=== PATIENT | female | born 1955 | race Caucasian/White ===

== ENCOUNTER 2019-12-11 16:24 | Emergency (ER) | payer BC, OTHER ==
[~2019-12-11] VITALS: Ht 163 cm; Wt 75.2 kg
[2019-12-11] MEDS ORDERED: MONT10TA26 (16:35)
[2019-12-11] MEDS ORDERED: FLUO20CA46 (16:35)
[2019-12-11] MEDS ORDERED: LISI-552 (16:35)
--- NOTE | 2019-12-11 16:39 | NUR ---
Dr. Red in room at this time.
[2019-12-11] MEDS ORDERED: ONDANSETRON 4 MG (ZOFRAN) ORAL DISSOLVE TAB PO STA (16:42)
[2019-12-11] MEDS ORDERED: HYDROcodone/APAP 10 MG/325 MG (LORTAB) TAB PO ONE (16:45)
--- NOTE | 2019-12-11 16:51 | ED Upper Extremity ---
General Chief Complaint: Trauma-Non Activation Stated Complaint: WRIST INJ Nursing Triage Note: Patient reports falling over trailer hitch onto outstretched L arm. C/O L wrist pain, denies elbow or shoulder pain. denies hitting head or LOC. Nursing Sepsis Screen: No Definite Risk Source: patient History of Present Illness Date Seen by Provider: December 11, 2019 Time Seen by Provider: 16:20 Initial Comments Patient is a right-handed female who presents with left injury/forearm injury after accidentally falling with an outstretched left hand. Patient reports hearing snapping sensation noted to have subtle deformity over the distal forearm. Patient denies hitting head, headache, loss of consciousness and neck pain. Denies chest, shoulder elbow pain. Patient is not currently on blood thinners. Reports nausea secondary to the pain, Patient arrives by private vehicle. Onset: just prior to arrival Pain/Injury Location: left forearm, left wrist Method of Injury: fell Modifying Factors: Improves With Cold Therapy, Improves With Movement Allergies and Home Medications Allergies Coded Allergies: hydrocodone (Verified Allergy, Unknown, Vomiting, 12/11/19) oxycodone (Verified Allergy, Unknown, Vomiting, 12/11/19) Patient Home Medication List Home Medication List Reviewed: Yes Review of Systems Constitutional: no symptoms reported EENTM: no symptoms reported Cardiovascular: no symptoms reported Gastrointestinal: no symptoms reported Genitourinary: no symptoms reported Psychiatric/Neurological: Numbness, Paresthesia Past Npykkei-Zspcts-Mpdtiv Hx Past Med/Social Hx: Reviewed Nursing Past Med/Soc Hx Patient Social History Alcohol Use: Regular Use Alcohol Beverage of Choice: Beer Recreational Drug Use: No Smoking Status: Never a Smoker Recent Foreign Travel: No Contact w/Someone Who Travel: No Recent Infectious Disease Expo: No Past Medical History Surgeries: Yes Hysterectomy, Oophorectomy, Orthopedic Respiratory: No Cardiac: Yes Hypertension Neurological: No Genitourinary: No Gastrointestinal: No Musculoskeletal: No Endocrine: No HEENT: No Cancer: No Psychosocial: Yes Depression Blood Disorders: No Physical Exam Vital Signs Vital Signs - First Documented 12/11/19 16:32 Temp 35.6 Pulse 89 Resp 22 B/P (MAP) 134/84 (101) Pulse Ox 100 Capillary Refill : Less Than 3 Seconds Height, Weight, BMI Height: '" Weight: lbs. oz. kg; 28.00 BMI Method: General Appearance: mild distress HEENT: PERRL/EOMI, normal ENT inspection Neck: full range of motion, supple, normal inspection Cardiovascular: normal peripheral pulses, regular rate, rhythm Respiratory: lungs clear Gastrointestinal: non tender, soft Back: normal inspection Shoulder: normal inspection, non-tender Elbow/Forearm: bone tenderness (L distal forearm), limited ROM, pain, soft tissue tenderness, swelling Wrist: Yes deformity (L proximal wrist), Yes limited ROM, Yes pain, Yes soft tissue tenderness, Yes swelling Neurologic/Tendon: normal sensation, normal motor functions, responds to pain Neurologic/Psychiatric: no motor/sensory deficits, alert, oriented x 3 Progress/Results/Core Measures Results/Orders My Orders Orders - RICK BARRERA DO Forearm 2 View Left (12/11/19 16:42) Wrist 3 View Left (12/11/19 16:42) Ondansetron Oral Dissolve Tab (Zofran (12/11/19 16:42) Hydrocodone/Apap 10/325 Tablet (Lortab 1 (12/11/19 16:45) Medications Given in ED Current Medications Medications Dose Ordered Sig/Michelle Route Start Time Stop Time Status Last Admin Dose Admin Acetaminophen/ Hydrocodone Bitart 1 ea ONCE ONCE PO 12/11/19 16:45 12/11/19 16:46 DC 12/11/19 17:00 1 EA Vital Signs/I&O 12/11/19 16:32 Temp 35.6 Pulse 89 Resp 22 B/P (MAP) 134/84 (101) Pulse Ox 100 Blood Pressure Mean: 101 Departure Communication (Admissions) XR L forearm/wrist: distal radius fx Patient placed in splint and sling Impression Primary Impression: Wrist fracture, left Disposition: HOME, SELF-CARE Condition: Stable Departure-Patient Inst. Decision time for Depature: 17:06 Patient Instructions: Wrist Fracture (DC) Add. Discharge Instructions: Please wear splint and sling. Take ibuprofen for pain and hydrocodone as needed for additional relief. Contact Dr. Burgess's office on Saturday to schedule follow-up appointment later that week All discharge instructions reviewed with patient and/or family. Voiced understanding. Scripts Hydrocodone/Acetaminophen (Hydrocodone-Acetamin 5-325 mg) 1 Each Tablet 1 EACH PO q6, #10 TAB Prov: RICK BARRERA DO 12/11/19 RICK BARRERA DO December 11, 2019 16:51
--- NOTE | 2019-12-11 17:05 | Diagnostic Imaging Report ---
EXAMINATION: Left elbow, 2 views. COMPARISON: None. HISTORY: 64-year-old female, injury. Left forearm and wrist pain. FINDINGS: There is a comminuted displaced distal radial metaphyseal fracture. There is mild dorsal angulation of the distal fracture fragment. There is no additional identified more proximal fracture of the radius or ulna. There is no identified radiopaque foreign body. IMPRESSION: 1. Comminuted displaced and mildly dorsally angulated fracture of the distal radial metaphysis. 2. No identified acute fracture involving the more proximal aspect of the radius or ulna. Dictated by: Dictated on workstation # [id number]
[2019-12-11] MEDS ORDERED: HYDR-83 PO (17:07)
--- NOTE | 2019-12-11 17:07 | Diagnostic Imaging Report ---
INDICATION: Pain. COMPARISON: Imaging performed from same date. TECHNIQUE: Three radiographs of left wrist dated December 11, 2019. FINDINGS: Acute distal radial fracture is present. Fracture is mildly comminuted. There is resulting mild dorsal tilt. No definite intra-articular extension of the fracture. No additional acute fracture or dislocation. No destructive osseous process. Scattered degenerative changes, including advanced degenerative changes at the first CMC joint and the STT joint. IMPRESSION: Acute mildly comminuted distal radial fracture with associated dorsal tilt without intra-articular extension. Scattered degenerative changes. Dictated by: Dictated on workstation # [id number]
[2019-12-11] MEDS ORDERED: ONDA4TAB11 PO (17:19)
[2019-12-11 17:22] VITALS: BP 134/84
--- OUTSIDE RECORDS SUMMARY | 2019-12-11 18:47 | XMS REPORT | Continuity of Care Document ---
Author Organization Unknown Address Unknown Phone Unavailable Allergies There is no data. Medications There is no data. Problems There is no data. Procedures There is no data. Results Test Result Range CBC - 02/05/19 08:15 WHITE BLOOD CELL COUNT 6.5 Thousand/uL 3 .8-10.8 RED BLOOD CELL COUNT 4.20 Million/uL 3.8 0-5.10 HEMOGLOBIN 13.0 g/dL 11.7-15.5 HEMATOCRIT 40.4 % 35.0-45.0 MCV 96.2 fL 80.0-100.0 MCH 31.0 pg 27.0-33.0 MCHC 32.2 g/dL 32.0-36.0 RDW 13.1 % 11.0-15.0 PLATELET COUNT 353 Thousand/uL 140-400 MPV 9.1 fL 7.5-12.5 ABSOLUTE NEUTROPHILS 3679 cells/uL 1500- 7800 ABSOLUTE LYMPHOCYTES 1983 cells/uL 850-3 900 ABSOLUTE MONOCYTES 585 cells/uL 200-950 ABSOLUTE EOSINOPHILS 182 cells/uL 15-500 ABSOLUTE BASOPHILS 72 cells/uL 0-200 NEUTROPHILS 56.6 % NRG LYMPHOCYTES 30.5 % NRG MONOCYTES 9.0 % NRG EOSINOPHILS 2.8 % NRG BASOPHILS 1.1 % NRG A1C - 02/05/19 08:15 HEMOGLOBIN A1c 5.5 % of total Hgb <5.7 Encounters ACCT No. Visit Date/Time Discharge Status Pt. Type Provider Facility Loc./Unit Complaint [id number] 02/20/2019 08:20:00 02/20/2019 23:59: 59 CLS Outpatient ELISE LEE [facility] [id number] 02/05/2019 08:15:00 Document Registration [id number] 02/26/2019 07:21:00 019 23:59:59 CLS Preadmit ELISE LEE MD [facility] RAD SCREENING FOR LUNG CA
== END 2019-12-11 17:23 | disposition home or self-care (01) ==
LOC: EDUNIT# 16:24 → ER FS 16:26
DX: S52.592A Other fractures of lower end of left radius, initial encounter for closed fracture (principal); Z88.5 Allergy status to narcotic agent; W18.39XA Other fall on same level, initial encounter
CPT/HCPCS: 29125; 73090; 73110

== ENCOUNTER 2022-03-30 17:22 | Emergency (ER) | payer MEDICARE, OTHER ==
[~2022-03-30] VITALS: Ht 165.1 cm; Wt 75.2 kg
[~2022-03-30 17:22] MED LIST: ACHD5005 PO; FLUO20CA48; LISI20TA26; MONT-40; ONDA4TAB11 PO
--- NOTE | 2022-03-30 17:38 | ED Syncope ---
General Stated Complaint: SYNCOPE Source of Information: Patient Exam Limitations: No Limitations History of Present Illness Date Seen by Provider: Mar 30, 2022 Time Seen by Provider: 17:27 Initial Comments 66-year-old female presents to the emergency department via ambulance after syncopal episode. She and her were diagnosed with COVID-19 on Saturday and she has had 2 days worth of diarrhea. She was sitting on the couch and stood up and passed out for few seconds. She had some brief lower sternal chest pain that was sharp and stabbing without radiation. When she woke up her pain was gone. She feels generally weak and she has a headache, cough. She is also having diffuse body aches as well as the diarrhea. She was nauseous yesterday but is not nauseated today. No cardiac or respiratory history Allergies and Home Medications Allergies Coded Allergies: hydrocodone (Verified Allergy, Unknown, Vomiting, 12/11/19) oxycodone (Verified Allergy, Unknown, Vomiting, 12/11/19) Patient Home Medication List Home Medication List Reviewed: Yes Fluoxetine HCl (Fluoxetine HCl) 20 Mg Capsule, (Reported) Entered as Reported by: NEMO NOWAK on 12/11/19 1635 Hydrocodone/Acetaminophen (Hydrocodone-Acetamin 5-325 mg) 1 Each Tablet, 1 EACH PO q6 Prescribed by: RICK BARRERA on 12/11/19 1707 Lisinopril (Lisinopril) 20 Mg Tablet, (Reported) Entered as Reported by: NEMO NOWAK on 12/11/19 1635 Montelukast Sodium (Montelukast Sodium) 10 Mg Tablet, (Reported) Entered as Reported by: NEMO NOWAK on 12/11/19 1635 Ondansetron (Ondansetron Odt) 4 Mg Tab.rapdis, 4 MG PO Q6H Prescribed by: RICK BARRERA on 12/11/19 1719 Review of Systems Constitutional: weakness EENTM: throat pain Respiratory: cough, short of breath Cardiovascular: chest pain, syncope Gastrointestinal: diarrhea, nausea Genitourinary: no symptoms reported Musculoskeletal: muscle stiffness Skin: no symptoms reported Psychiatric/Neurological: No Symptoms Reported Past Lxegnyj-Siaeqb-Leeziw Hx Patient Social History Tobacco Use?: No Use of E-Cig and/or Vaping dev: No Substance use?: No Alcohol Use?: No Pt feels they are or have been: No Family Medical History Reviewed Nursing Family Hx No Pertinent Family Hx Physical Exam Vital Signs Vital Signs - First Documented 03/30/22 17:25 Temp 36.1 Pulse 73 Resp 17 B/P (MAP) 123/66 (85) Pulse Ox 97 O2 Delivery Room Air Capillary Refill : Height, Weight, BMI Height: '" Weight: lbs. oz. kg; BMI Method: General Appearance: No Apparent Distress, WD/WN HEENT: PERRL/EOMI, TMs Normal, Normal ENT Inspection, Pharynx Normal Neck: Full Range of Motion, Normal Inspection, Non Tender, Supple Cardiovascular: Regular Rate, Rhythm, No Edema, No Gallop, No JVD, No Murmur, Normal Peripheral Pulses Respiratory: Chest Non Tender, Lungs Clear, Normal Breath Sounds, No Accessory Muscle Use, No Respiratory Distress Gastrointestinal: Normal Bowel Sounds, No Organomegaly, No Pulsatile Mass, Non Tender, Soft Back: Normal Inspection, No CVA Tenderness, No Vertebral Tenderness Extremities: Normal Capillary Refill, Normal Inspection, Normal Range of Motion, Non Tender, No Calf Tenderness Neurologic/Psychiatric: Alert, Oriented x3, No Motor/Sensory Deficits, Normal Mood/Affect, electronics engineering technician II-XII Norm as Tested Motor/Sensory: No Motor Deficit, No Sensory Deficit, No Pronator Drift Skin: Normal Color, Warm/Dry Lymphatic: No Adenopathy Progress/Results/Core Measures Results/Orders Lab Results Laboratory Tests Test 03/30/22 17:31 Range/Units White Blood Count 16.5 H 4.3-11.0 10^3/uL Red Blood Count 3.97 3.80-5.11 10^6/uL Hemoglobin 12.2 11.5-16.0 g/dL Hematocrit 37 35-52 % Mean Corpuscular Volume 94 80-99 fL Mean Corpuscular Hemoglobin 31 25-34 pg Mean Corpuscular Hemoglobin Concent 33 32-36 g/dL Red Cell Distribution Width 14.5 10.0-14.5 % Platelet Count 287 130-400 10^3/uL Mean Platelet Volume 9.4 9.0-12.2 fL Immature Granulocyte % (Auto) 1 % Neutrophils (%) (Auto) 73 42-75 % Lymphocytes (%) (Auto) 17 12-44 % Monocytes (%) (Auto) 9 0-12 % Eosinophils (%) (Auto) 0 0-10 % Basophils (%) (Auto) 0 0-10 % Neutrophils # (Auto) 12.0 H 1.8-7.8 10^3/uL Lymphocytes # (Auto) 2.8 1.0-4.0 10^3/uL Monocytes # (Auto) 1.4 H 0.0-1.0 10^3/uL Eosinophils # (Auto) 0.0 0.0-0.3 10^3/uL Basophils # (Auto) 0.1 0.0-0.1 10^3/uL Immature Granulocyte # (Auto) 0.1 0.0-0.1 10^3/uL Sodium Level 137 135-145 MMOL/L Potassium Level 3.5 L 3.6-5.0 MMOL/L Chloride Level 103 98-107 MMOL/L Carbon Dioxide Level 18 L 21-32 MMOL/L Anion Gap 16 H 5-14 MMOL/L Blood Urea Nitrogen 16 7-18 MG/DL Creatinine 0.95 0.60-1.30 MG/DL Estimat Glomerular Filtration Rate 66 BUN/Creatinine Ratio 17 Glucose Level 141 H 70-105 MG/DL Calcium Level 8.6 8.5-10.1 MG/DL Corrected Calcium 8.8 8.5-10.1 MG/DL Total Bilirubin 0.3 0.1-1.0 MG/DL Aspartate Amino Transf (AST/SGOT) 37 H 5-34 U/L Alanine Aminotransferase (ALT/SGPT) 38 0-55 U/L Alkaline Phosphatase 84 40-136 U/L Troponin I < 0.30 <0.30 NG/ML Total Protein 6.8 6.4-8.2 GM/DL Albumin 3.7 3.2-4.5 GM/DL My Orders Orders - GEORGIA ARNETT DO Cbc With Automated Diff (03/30/22 17:31) Comprehensive Metabolic Panel (03/30/22 17:31) Ekg Tracing (03/30/22 17:31) Troponin I Fs (03/30/22 17:31) Chest 1 View Ap/Pa Only (03/30/22 17:31) Manual Differential (03/30/22 17:31) Covid-19 External Lab Results (03/30/22 17:49) Isolation Central Supply Req (03/30/22 17:49) Potassium Chloride (Tablet) (K Dur Table (03/30/22 18:30) Vital Signs/I&O 03/30/22 17:25 Temp 36.1 Pulse 73 Resp 17 B/P (MAP) 123/66 (85) Pulse Ox 97 O2 Delivery Room Air Initial ECG Impression Date: Mar 30, 2022 Initial ECG Impression Time: 17:32 Comment Sinus rhythm with a rate of 68 bpm. Normal intervals. Normal axis. No ST or T wave abnormalities. No ectopy. Diagnostic Imaging Diagonstic Imaging: Xray Comments AP chest x-ray shows patchy infiltrate bilaterally consistent with COVID- pneumonia Departure Communication (Admissions) Patient is hemodynamically stable. Oxygen levels are normal throughout her emergency department stay. She appears acutely ill but nontoxic. Labs are reassuring. Slight hypokalemia, repleted orally. EKG is nonischemic. I think this is related to volume depletion and COVID. She received a liter of fluids via EMS prior to arrival as she was borderline hypotensive in the 105 systolic range. Blood pressures been 120-130 systolic while here. She is discharged home in stable condition with close primary care follow-up. Impression Primary Impression: COVID-19 Additional Impressions: Generalized weakness Diarrhea Qualified Codes: R19.7 - Diarrhea, unspecified Hypokalemia Disposition: 01 HOME, SELF-CARE Condition: Stable Departure-Patient Inst. Decision time for Depature: 18:28 Patient Instructions: COVID-19 Home Care/Discharge, Hypokalemia (DC), Diarrhea, Adult ED Add. Discharge Instructions: Please increase your fluids at home, eat when able. Get up and walk around as much as possible. Return to the emergency department for any severe shortness of breath, especially if it keeps you from getting to the restroom or kitchen to get food or water. Follow-up with your primary doctor in the next couple of days for reevaluation. Keep your appointment on Saturday for your COVID infusion. GEORGIA ARNETT DO Mar 30, 2022 17:38
[2022-03-30 17:43] LABS: BASOPHILS # (AUTO) 0.1 10^3/uL (0.0-0.1); BASOPHILS % (AUTO) 0 % (0-10); EOSINOPHILS % (AUTO) 0 % (0-10); HEMATOCRIT 37 % (35-52); HEMOGLOBIN 12.2 g/dL (11.5-16.0); LYMPHOCYTES # (AUTO) 2.8 10^3/uL (1.0-4.0); LYMPHOCYTES % (AUTO) 17 % (12-44); MEAN CORPUSCULAR HEMOGLOBIN 31 pg (25-34); MEAN CORPUSCULAR HGB CONC 33 g/dL (32-36); MEAN CORPUSCULAR VOLUME 94 fL (80-99); MEAN PLATELET VOLUME 9.4 fL (9.0-12.2); MONOCYTES # (AUTO) 1.4 10^3/uL (0.0-1.0); MONOCYTES % (AUTO) 9 % (0-12); NEUTROPHILS % (AUTO) 73 % (42-75); PLATELET COUNT 287 10^3/uL (130-400); WHITE BLOOD COUNT 16.5 10^3/uL (4.3-11.0)
--- NOTE | 2022-03-30 18:08 | Diagnostic Imaging Report ---
INDICATION: Syncope, Covid positive. EXAMINATION: Frontal chest was obtained at 5:50 p.m. Heart is borderline in size. There is mild central vascular prominence. There is no overt consolidation or pneumothorax or pleural fluid. IMPRESSION: Borderline heart size with mild central vascular prominence. No overt consolidation or pneumothorax or pleural fluid. Dictated by: Dictated on workstation # [id number]
[2022-03-30 18:11] LABS: ALANINE AMINOTRANSFERASE 38 U/L (0-55); ALBUMIN 3.7 GM/DL (3.2-4.5); ALKALINE PHOSPHATASE 84 U/L (40-136); BILIRUBIN,TOTAL 0.3 MG/DL (0.1-1.0); BUN/CREATININE RATIO 17; CALCIUM 8.6 MG/DL (8.5-10.1); CARBON DIOXIDE 18 MMOL/L (21-32); CHLORIDE 103 MMOL/L (98-107); CREATININE SERUM 0.95 MG/DL (0.60-1.30); GFR ESTIMATED 66; GLUCOSE 141 MG/DL (70-105); POTASSIUM 3.5 MMOL/L (3.6-5.0); SODIUM 137 MMOL/L (135-145); TOTAL PROTEIN 6.8 GM/DL (6.4-8.2)
[2022-03-30 18:27] LABS: EOSINOPHILS % (MANUAL) 1 %; LYMPHOCYTES % (MANUAL) 21 %; MONOCYTES % (MANUAL) 7 %; NEUTROPHILS % (MANUAL) 71 %
[2022-03-30] MEDS ORDERED: KCL 20 MEQ TAB (K-DUR) PO ONE (18:30)
[2022-03-30 18:37] VITALS: BP 125/62
== END 2022-03-30 18:37 | disposition home or self-care (01) ==
LOC: EDUNIT# 17:22 → ER FS 17:36
DX: U07.1 COVID-19 (principal); R53.1 Weakness; R19.7 Diarrhea, unspecified; E87.6 Hypokalemia; E86.9 Volume depletion, unspecified; Z73.0 Burn-out
CPT/HCPCS: 36415; 71045; 80053; 84484; 85007; 85027; 93005